=== PATIENT | female | born 1990 | race Hispanic/Latino ===

== ENCOUNTER 2022-11-12 17:54 | Emergency (ER) | payer OTHER ==
[~2022-11-12] VITALS: Ht 167.6 cm; Wt 99.8 kg
== END 2022-11-12 19:53 | disposition home or self-care (01) ==
LOC: ER 18:05
DX: M25.552 Pain in left hip (principal); R20.0 Anesthesia of skin
CPT/HCPCS: 99282

== ENCOUNTER 2024-11-05 17:01 | Inpatient (IN) | payer OTHER ==
[~2024-11-05] VITALS: Ht 167.6 cm; Wt 99.8 kg
[~2024-11-05 17:01] MED LIST: PREDNISONE20 MG PO; VENTOLIN HFA18 GM INH
[2024-11-05 18:52] LABS: CLARITY,URINE CLEAR (CLEAR); COLOR,URINE YELLOW (YELLOW)
[2024-11-05 18:53] LABS: BILIRUBIN,URINE NEGATIVE (NEGATIVE); GLUCOSE, URINE NEGATIVE (NEGATIVE); KETONES,URINE NEGATIVE (NEGATIVE); LEUKOCYTE ESTERASE ,URINE NEGATIVE (NEGATIVE); NITRITE,URINE NEGATIVE (NEGATIVE); PH,URINE 7 (5 - 7); PROTEIN,URINE DIPSTICK NEGATIVE (NEGATIVE); URINE UROBILINOGEN 0.2 mg/dL (0.2 - 1)
[2024-11-05 19:01] LABS: BACTERIA,URINE RARE /HPF; EPITHELIAL CELLS,URINE FEW /LPF
[2024-11-05] MEDS: KETOROLAC TROMETHAMINE 30 MG/ML VIAL IV STA (22:09)
[2024-11-05] MEDS: ONDANSETRON HCL INJ 2MG/ML 2ML 2 MG/ML VIAL IV STA (22:09)
[2024-11-05 22:24] LABS: BASOPHILS % 0.3 % (0.0-1.0); EOSINOPHILS # (AUTO) 0.1 (0.0-0.4); EOSINOPHILS % 1.1 % (0.0-6.0); HEMATOCRIT 28.4 % (34.2-44.1); LYMPHOCYTES # (AUTO) 2.9 (1.0-3.2); LYMPHOCYTES % 26.2 % (18.0-39.1); MEAN CORPUSCULAR HEMOGLOBIN 18.7 pg (28-32); MEAN CORPUSCULAR HGB CONC 28.2 g/dL (31-35); MEAN CORPUSCULAR VOLUME 66.5 fL (81-99); MONOCYTES # (AUTO) 0.9 (0.2-0.8); MONOCYTES % 7.8 % (4.4-11.3); NEUTROPHILS # (AUTO) 7.2 (2.1-6.9); NEUTROPHILS % 64.4 % (38.7-80.0); PLATELET COUNT 492 x10e3/uL (140-360); RED BLOOD COUNT 4.27 x10e6/uL (3.6-5.1); RED CELL DISTRIBUTION WIDTH 18.6 % (11.7-14.4); WHITE BLOOD COUNT 11.12 x10e3/uL (4.8-10.8)
[2024-11-05 23:04] LABS: ALBUMIN 4.3 g/dL (3.5-5.0); ALBUMIN/GLOBULIN RATIO 1.2 (0.8-2.0); ANION GAP 16.8 mmol/L (8-16); BILIRUBIN,TOTAL 0.3 mg/dL (0.2-1.2); CALCIUM 9.2 mg/dL (8.4-10.2); CREATININE, SERUM 0.74 mg/dL (0.57-1.11); POTASSIUM 3.8 mmol/L (3.5-5.1)
[2024-11-06] VITALS (15 sets, daily range): BP systolic 107–119; BP diastolic 57–73; PULSE 61–87; RESP 16–20; TEMP 97.6–98.9; O2SAT 96–100
[2024-11-06] MEDS ORDERED: SODIUM CHLORIDE FLUSH 10 ML SYR INJ PRN (01:15)
[2024-11-06] MEDS: SODIUM CHLORIDE 0.9% 1000ML 1,000 ML IV SCH ×2 (01:48→10:48)
[2024-11-06] MEDS: ONDANSETRON HCL INJ 2MG/ML 2ML 2 MG/ML VIAL IV PRN (01:51)
[2024-11-06] MEDS: Morphine 4mg INJECTION 4 MG/ML INJ IV PRN (01:51)
[2024-11-06 03:48] LABS: ANISOCYTOSIS MODERATE; ELLIPTOCYTE, RBC SLIGHT; HYPOCHROMASIA MODERATE; MICROCYTOSIS MODERATE; OVALOCYTES FEW; POIKILOCYTOSIS MODERATE; POLYCHROMASIA FEW; TEAR DROP CELLS FEW
[2024-11-06 03:49] LABS: PLATELET ESTIMATE ADEQUATE; PLATELET MORPHOLOGY COMMENT NORMAL; RBC MORPHOLOGY COMMENT ABNORMAL; STOMATOCYTES SLIGHT
[2024-11-06] MEDS: HYDROMORPHONE 1MG/1ML INJ IV STA (04:23)
[2024-11-06] MEDS ORDERED: HYDRALAZINE HCL 20 MG/ML VIAL IV PRN (04:30)
[2024-11-06] MEDS ORDERED: NALOXONE HCL INJ 0.4 MG/ML AMP IV PRN (04:45)
[2024-11-06] MEDS ORDERED: IOPAMIDOL 370 MG/ML 100 ML INFUS..BTL INJ ONE (05:44)
[2024-11-06 07:48] LABS: BASOPHILS % 0.3 % (0.0-1.0); EOSINOPHILS % 0.3 % (0.0-6.0); HEMATOCRIT 25.5 % (34.2-44.1); HEMOGLOBIN 7.3 g/dL (12.0-16.0); LYMPHOCYTES # (AUTO) 1.2 (1.0-3.2); LYMPHOCYTES % 12.9 % (18.0-39.1); MEAN CORPUSCULAR HEMOGLOBIN 18.9 pg (28-32); MEAN CORPUSCULAR HGB CONC 28.6 g/dL (31-35); MEAN CORPUSCULAR VOLUME 66.1 fL (81-99); MONOCYTES # (AUTO) 0.7 (0.2-0.8); MONOCYTES % 7.1 % (4.4-11.3); NEUTROPHILS # (AUTO) 7.5 (2.1-6.9); PLATELET COUNT 373 x10e3/uL (140-360); RED BLOOD COUNT 3.86 x10e6/uL (3.6-5.1); RED CELL DISTRIBUTION WIDTH 18.6 % (11.7-14.4); RETICULOCYTE % 1.4 % (0.8-2.2); WHITE BLOOD COUNT 9.52 x10e3/uL (4.8-10.8)
[2024-11-06 08:34] LABS: ALBUMIN 3.4 g/dL (3.5-5.0); ANION GAP 16.8 mmol/L (8-16); BILIRUBIN,TOTAL 0.7 mg/dL (0.2-1.2); CALCIUM 8.3 mg/dL (8.4-10.2); CHOL/HDL RATIO 2.8 (3.0-3.6); CREATININE, SERUM 0.75 mg/dL (0.57-1.11); MAGNESIUM 2.1 MG/DL (1.3-2.1); PHOSPHORUS 4.4 MG/DL (2.3-4.7); POTASSIUM 3.8 mmol/L (3.5-5.1); TOTAL PROTEIN 6.9 g/dL (6.5-8.1)
[2024-11-06 08:41] LABS: FERRITIN 9.15 ng/mL (4.63-204.00); THYROID STIMULATING HORMONE 2.703 uIU/mL (0.350-4.940)
[2024-11-06] MEDS ORDERED: LIDOCAINE HCL 2% LOCAL INJ 5 ML SDV VIAL INJ ONE ×2 (08:53→08:55)
[2024-11-06] MEDS ORDERED: PROPOFOL IV EMULSION 10 MG/ML 20 ML VIAL ONE (08:53)
[2024-11-06] MEDS ORDERED: ROCURONIUM BROMIDE 1 ML IV ONE ×2 (08:53→09:19)
[2024-11-06] MEDS ORDERED: FENTANYL CITRATE/PF 100MCG/2 ML INJ ONE (08:53)
[2024-11-06] MEDS ORDERED: SUCCINYLCHOLINE CHLORIDE 20 MG/ML 10ML VIAL ONE (08:53)
[2024-11-06] MEDS ORDERED: Morphine 10mg syringe 10 MG/ML INJ ONE (09:19)
[2024-11-06] MEDS ORDERED: SUGAMMADEX SODIUM 200 MG/2 ML VIAL IV ONE ×2 (09:29→09:47)
[2024-11-06] MEDS ORDERED: KETOROLAC TROMETHAMINE 30 MG/ML VIAL ONE (09:45)
[2024-11-06] MEDS ORDERED: ONDANSETRON HCL INJ 2MG/ML 2ML 2 MG/ML VIAL IV PRN (10:00)
[2024-11-06] MEDS ORDERED: ACETAMINOPHEN 325 MG TAB PO PRN (10:00)
[2024-11-06] MEDS: IRON SUCROSE 100 MG in SODIUM CHLORIDE 0.9% 100 ML IV SCH (10:55)
[2024-11-06] MEDS: CYANOCOBALAMIN INJ 1,000 MCG/ML VIAL IM ONE (10:56)
[2024-11-06] MEDS: HYDROMORPHONE 1MG/1ML INJ IV PRN (10:56)
[2024-11-07] VITALS (8 sets, daily range): BP systolic 117–131; BP diastolic 64–80; PULSE 63–73; RESP 16–18; TEMP 98.1–98.8; O2SAT 95–100
[2024-11-07 06:14] LABS: BASOPHILS % 0.3 % (0.0-1.0); EOSINOPHILS % 0.1 % (0.0-6.0); HEMATOCRIT 24.6 % (34.2-44.1); LYMPHOCYTES # (AUTO) 1.9 (1.0-3.2); MEAN CORPUSCULAR HEMOGLOBIN 19.1 pg (28-32); MEAN CORPUSCULAR VOLUME 68.1 fL (81-99); MONOCYTES # (AUTO) 0.7 (0.2-0.8); MONOCYTES % 6.2 % (4.4-11.3); NEUTROPHILS # (AUTO) 7.9 (2.1-6.9); NEUTROPHILS % 74.7 % (38.7-80.0); PLATELET COUNT 390 x10e3/uL (140-360); RED BLOOD COUNT 3.61 x10e6/uL (3.6-5.1); RED CELL DISTRIBUTION WIDTH 18.5 % (11.7-14.4); WHITE BLOOD COUNT 10.58 x10e3/uL (4.8-10.8)
[2024-11-07 06:24] LABS: HEMOGLOBIN 6.9 g/dL (12.0-16.0)
[2024-11-07] MEDS ORDERED: ULTRAM 50MG50 MG PO (06:24)
[2024-11-07 06:48] LABS: ALBUMIN 3.3 g/dL (3.5-5.0); ANION GAP 14.7 mmol/L (8-16); BILIRUBIN,TOTAL 0.3 mg/dL (0.2-1.2); CALCIUM 8.4 mg/dL (8.4-10.2); CREATININE, SERUM 0.75 mg/dL (0.57-1.11); POTASSIUM 3.7 mmol/L (3.5-5.1); TOTAL PROTEIN 6.6 g/dL (6.5-8.1)
[2024-11-07] MEDS: HYDROCODONE/APAP 5MG-325MG TAB PO PRN (08:23)
[2024-11-07] MEDS: SODIUM CHLORIDE 0.9% 250ML 250 ML IV ONE (18:37)
== END 2024-11-07 22:54 | disposition home or self-care (01) | DRG 399 ==
LOC: ER 21:23 → ERHOLD 11-06 01:10 → MED/SURG3 11-06 02:01
PROVIDERS: ADMIT Internal Medicine; ATTEND Internal Medicine
PROC: 0DTJ4ZZ Resection of Appendix, Percutaneous Endoscopic Approach (ICD-10-PCS; principal; 2024-11-06 08:59)
PROC: 30233N1 Transfusion of Nonautologous Red Blood Cells into Peripheral Vein, Percutaneous Approach (ICD-10-PCS; 2024-11-07)
DX: K35.80 Unspecified acute appendicitis (principal); D75.839 Thrombocytosis, unspecified; D50.0 Iron deficiency anemia secondary to blood loss (chronic); N92.0 Excessive and frequent menstruation with regular cycle; F41.9 Anxiety disorder, unspecified; E66.9 Obesity, unspecified; Z68.35 Body mass index [BMI] 35.0-35.9, adult; T40.2X5A Adverse effect of other opioids, initial encounter; R07.89 Other chest pain
CPT/HCPCS: 36415; 74177; 80053; 80061; 81001; 81025; 82607; 82728; 82746; 83540; 83735; 84100; 84439; 84443; 84466; 85025; 85045; 86850; 86900; 86920; 88304; 94799; 99284; J0330; J1171; J1756; J1885; J2003; J2270; J2405; J2470; J2543; J3420; J7030; J7050; P9016; Q9967